=== PATIENT | female | born 1990 ===

== ENCOUNTER 2025-02-10 08:41 | Outpatient (CLI) | payer OTHER | END 2025-02-10 08:42 | disposition home or self-care (01) | LOC: PRENATAL 08:41 | PROVIDERS: ATTEND Obstetrics & Gynecology Maternal & Fetal Medicine | DX: O44.00 Complete placenta previa NOS or without hemorrhage, unspecified trimester (principal); O99.280 Endocrine, nutritional and metabolic diseases complicating pregnancy, unspecified trimester; O34.10 Maternal care for benign tumor of corpus uteri, unspecified trimester; Z3A.24 24 weeks gestation of pregnancy ==